=== PATIENT | male | born 1980 | race Caucasian/White ===

== ENCOUNTER 2023-12-12 08:31 | Emergency (ER) | payer SELFPAY ==
[2023-12-12 08:38] VITALS: BP 122/85
--- NOTE | 2023-12-12 09:13 | ED.MUSCINJ ---
HPI-Injury
General
Chief Complaint: Extremity Pain (non-traumatic)
Source: patient
Time Seen by Provider: 12/12/23 09:02
History of Present Illness-Injury
Initial Injury comments:
43-year-old male presents complaining of right wrist pain starting today. He states he picked up a shovel. The pain is over the ulnar aspect of his wrist and is made worse with palm up palm down activities. Every now and then he gets this pain
but is able to work it out however this time discomfort will go away. He denies numbness or tingling
Past History
Past History
ED Past Medical History: Other (noncontributory )
ED Past Surgical History: Other (noncontributory )
Social History
Tobacco: Smoker
Alcohol: Daily
Drug: None
Personal: Other
Living: with family
Employment: Employed
Family History
Family History: Other
Phy Exam
Physical Exam
Physical Exam:
General: Uncomfortable appearing male NAD
Musculoskeletal exam: Right wrist is tender over the ulnar aspect of the wrist just distal to the ulnar styloid. Pronation supination reproduces pain.
Neurologic: Good sensation right hand
Skin is intact
Injury Course
Orders/Labs/Results
Orders:
Orders
12/12/23 08:41
CR Wrist - Right Min 3 Views Urgent
Comment:
Reason For Exam: pain
MDM/Problems Addressed
Differential Diagnosis Includes:
Right wrist pain. Consider fracture versus dislocation versus sprain versus ligament injury
X-rays of the right wrist were obtained and are negative for acute finding.
Patient is tender over the ulnar aspect of the wrist suspect possible ligament strain versus tendinitis. Will place in Velcro splint and advised follow-up with hand specialist.
*Critical Care Note
Total Time (30-74mins, 75-104mins- exclusive of procedures): Not Applicable
ED Attending Note
-
Portions of this chart may have been created with voice recognition software.� Occasional wrong word or��sound alike� substitutions may have occurred due to the inherent limitations of voice recognition software.
Discharge Plan
Departure
Patient Disposition: Home (Routine Discharge)
Date of Disposition: 12/12/23
Time of Disposition: 09:20
Patient with high blood pressure during this ER visit?: No
Discharge Problem:
Right wrist sprain
Instructions: Muscle and Bone Pain (DC)
Prescriptions:
No Action
sulfamethoxazole-trimethoprim 800 MG/160 MG tablet
1 tab PO BID Qty: 20 0RF
clindamycin HCl 300 MG capsule
300 mg PO TID Qty: 30 0RF
oxycodone-acetaminophen [Percocet] 1 EACH tablet
1 ea PO .Q6HRS Qty: 20 0RF
oxycodone-acetaminophen 5 MG/325 MG tablet
1 tab PO Q4HPRN PRN (Reason: pain) Qty: 30 0RF
cephalexin 500 MG capsule
500 mg PO BID Qty: 20 0RF
Referrals:
Stevo Oropeza MD [Active] -
UNKNOWN - PT DOES,NOT KNOW [Family Provider] -
Activity Restrictions/Additional Instructions:
Use splint for comfort. Use ibuprofen or Aleve for pain. Follow-up with hand specialist for persistent symptoms.
Interventions
Interventions:
*Risk Screen - Suicide Last Done: 12/12/23 08:38
*General Assessment Last Done: 12/12/23 08:38
*Neglect/Abuse Screening Last Done: 12/12/23 08:38
Discharge Date and Time
Print Language: RUSSIAN
== END 2023-12-12 09:37 | disposition home or self-care (01) ==
LOC: EMR 08:31
PROVIDERS: EMERGENCY PHYSICIAN Emergency Medicine
DX: S63.501A Unspecified sprain of right wrist, initial encounter (principal); X58.XXXA Exposure to other specified factors, initial encounter; F17.200 Nicotine dependence, unspecified, uncomplicated
CPT/HCPCS: 99283; 29125; 73110